=== PATIENT | male | born 1960 | race Caucasian/White ===

== ENCOUNTER 2023-12-13 05:49 | Observation (INO) ==
[2023-12-13] MEDS ORDERED: Tranexamic Acid 1 GM/100ML BAG 2,000 MG/200 ML BAG IV ONE (06:23)
[2023-12-13] MEDS ORDERED: ceFAZolin 2 GM in NS PREMIX 2 GM/100 ML BAG IVPB ONE (06:23)
[2023-12-13 06:28] LABS: Rapid COVID-19 Molecular Undetected (Undetected)
[2023-12-13] MEDS ORDERED: fentaNYL 100 mcg/2 ml 50 MCG/ML VIAL ONE (07:03)
[2023-12-13] MEDS ORDERED: Phenylephrine IV 10 MG/ML 1 ml VIAL ONE (07:03)
[2023-12-13] MEDS ORDERED: Midazolam 2 mg/2 ml VIAL 1 mg/ml 2 ml VIAL (2 mg) ONE (07:03)
[2023-12-13] MEDS ORDERED: Propofol 10 MG/ML 20 ML BTL ONE (07:03)
[2023-12-13] MEDS ORDERED: Lidocaine 2% PF 5 ML VIAL ONE (07:03)
[2023-12-13] MEDS ORDERED: Midazolam 5 mg/5 ml VIAL 1 mg/ml 5 ml VIAL (5 mg) ONE (07:09)
[2023-12-13] MEDS ORDERED: ROPIVACAINE 5 MG/ML 30 ML BTL (0.5%) ONE ×2 (07:18→07:20)
[2023-12-13] MEDS ORDERED: HYDROmorphone 1 MG/1 ML SYRINGE IV PRN (08:23)
[2023-12-13] MEDS ORDERED: Naloxone 0.4 mg VIAL 0.4 mg/ml 1 ml VIAL IV PRN (08:23)
[2023-12-13] MEDS ORDERED: Acetaminophen IV 1 GM/100ML 1,000 MG/100 ML BAG IV PRN (08:23)
[2023-12-13] MEDS ORDERED: Ondansetron 4 mg VIAL 2 MG/ML 2 ml VIAL IV PRN ×2 (08:23→08:46)
[2023-12-13] MEDS ORDERED: fentaNYL 100 mcg/2 ml 50 MCG/ML VIAL IV PRN (08:23)
[2023-12-13] MEDS ORDERED: Ondansetron ODT 4 mg TAB 4 MG TAB PO PRN (08:46)
[2023-12-13] MEDS ORDERED: Morphine 2 MG/ML SYRINGE IV PRN (08:46)
[2023-12-13] MEDS ORDERED: Magnesium Hydroxide LIQ 30 ML UDC PO PRN (08:46)
[2023-12-13] MEDS ORDERED: Lactulose 30 ml UDC PO PRN (08:46)
[2023-12-13] MEDS: Magnesium Hydroxide LIQ 30 ML UDC PO SCH (11:10)
[2023-12-13] MEDS: Vitamin THERAPEUTIC TAB PO SCH (11:11)
[2023-12-13] MEDS: Lactated Ringers 1000 ml BAG 1,000 ML IV SCH (11:42)
[2023-12-13] MEDS: ceFAZolin 1 GM ADVAN 1 GM in NS 0.9% 50 ML 50 ML IVPB SCH (17:00)
[2023-12-14 05:33] LABS: Hematocrit 36.6 % (38-53); Hemoglobin 12.5 g/dL (13.2-16.3); Mean Platelet Volume 7.1 fL (7.5-11.2); Platelet Count 207 10^3/uL (150-450)
[2023-12-14 06:02] LABS: Calcium 8.7 mg/dL (8.6-10.3); Creatinine, Serum 0.79 mg/dL (0.67-1.17); eGFR CKD-EPI 99.2 (>60)
[2023-12-14 06:08] VITALS: BP 109/68
== END 2023-12-14 10:55 | disposition home or self-care (01) ==
LOC: INTOOBSV 05:49 → AA 05:49 → SSU 08:46 → EDSTATUS 11:00
PROVIDERS: ADMIT Orthopaedic Surgery Adult Reconstructive Orthopaedic Surgery; ATTEND Orthopaedic Surgery Adult Reconstructive Orthopaedic Surgery